=== PATIENT | female | born 1955 | race Caucasian/White ===

== ENCOUNTER 2018-05-23 13:51 | Outpatient (CLI) | payer OTHER ==
--- NOTE | 2018-05-23 15:09 | BD ---
DEXA BONE DENSITOMETRY: (Dual energy X-ray Absorptiometry) DATE: 05/23/18 HISTORY: 62-year-old postmenopausal white female for age-related osteoporosis follow-up screening examination. Height: 66 Weight: 155 lbs Age of menopause: 47 years COMPARISON: 10/29/12. FINDINGS: The bone mineral density (BMD) is given in grams per square centimeter (g/cm2): LUMBAR SPINE: BMD(g/cm2) T-score Z-score L1: 0.824 -1.5 -0.1 L2: 0.879 -1.4 0.2 L3: 1.036 -0.4 1.2 L4: 1.090 0.3 1.9 Total: 0.962 -0.8 0.8 Change in BMD compared to previous DEXA: +9.4% HIP: Femoral neck: 0.663 -1.7 -0.3 Total: 0.894 -0.4 0.6 Change in BMD compared to previous DEXA: -9.5% FRAX WHO Fracture Risk Assessment Tool: 10 Year Fracture Risk * Major osteoporotic fracture: 8.9% Hip fracture: 0.9% Reported Risk Factors: [place](), Neck BMD=0.663, BMI=25.0 * Fracture probability is calculated for an untreated patient. Fracture probability may be lower if the patient has received treatment. IMPRESSION: 1. The mean bone mineral density of the lumbar spine is normal. Fracture risk is not increased. 2. The bone mineral density of the femoral neck is osteopenic. Fracture risk is increased. EDWARDO Galaviz POS: MARY BETH
== END 2018-05-23 13:52 | disposition home or self-care (01) ==
LOC: BICMAMMO 13:51
PROVIDERS: ATTEND Family Medicine
DX: Z12.31 Encounter for screening mammogram for malignant neoplasm of breast (principal); Z13.820 Encounter for screening for osteoporosis; M85.859 Other specified disorders of bone density and structure, unspecified thigh; N64.89 Other specified disorders of breast
CPT/HCPCS: 77063; 77067; 77080

== ENCOUNTER 2018-06-02 13:39 | Outpatient (CLI) | payer OTHER ==
--- NOTE | 2018-06-02 15:39 | ULT ---
LIMITED RIGHT BREAST ULTRASOUND: Date: 06-02-18 Provided Clinical History: Abnormal mammogram. FINDINGS: Limited sonographic interrogation of the right breast was performed in the region of mammographic con cern. A cluster of cysts is seen at the 12 o'clock location, corresponding to the mammogram finding. No suspicious sonographic findings are evident. IMPRESSION: BIRADS category 2 - benign findings. Return to annual screening mammography recommended. POS: MARLIN
== END 2018-06-02 13:40 | disposition home or self-care (01) ==
LOC: BICMAMMO 13:39
PROVIDERS: ATTEND Family Medicine
DX: R92.2 Inconclusive mammogram (principal); N64.89 Other specified disorders of breast
CPT/HCPCS: G0279

== ENCOUNTER 2020-02-18 13:39 | Outpatient (CLI) | payer OTHER ==
--- NOTE | 2020-02-18 14:17 | BD ---
EXAM: DEXA bone density examination HISTORY: 64-year-old postmenopausal female for screening COMPARISON: DEXA scan 2018 FINDINGS: L1--bone mineral density 0.865 g/sq cm; T score -1.1 L2--bone mineral density 0.861 g/sq cm; T score -1.5 L3--bone mineral density 1.120 g/sq cm; T score 0.3 L4--bone mineral density 1.175 g/sq cm; T score 1.0 Total L1-L4--bone mineral density 1.015 g/sq cm; T score -0.3 Left femoral neck--bone mineral density0.650; T score -1.8 Total proximal left femur--bone mineral density 0.849; T score -0.8 WHO classification: Osteopenia 10 year fracture risk Major osteoporotic fracture: 9.5% Hip fracture: 1.1% IMPRESSION: Osteopenia with elevated fracture risk as above.
--- NOTE | 2020-02-18 15:21 | MMO ---
Bilateral MAMMO Bilat Screen [facility]. CLINICAL HISTORY: Patient is 64 years old and is seen for screening. The patient has no family history of breast cancer. The patient has no personal history of cancer. VIEWS: The views performed were: bilateral craniocaudal with tomosynthesis and bilateral mediolateral oblique with tomosynthesis. FILMS COMPARED: The present examination has been compared to prior imaging studies performed at [facility] on 10/29/2012, 10/30/2013, 05/23/2018 and 06/02/2018. This study has been interpreted with the assistance of computer-aided detection. MAMMOGRAM FINDINGS: There are scattered fibroglandular densities. Finding 1: Benign calcifications are noted bilaterally. Finding 2: There is a stable focal asymmetry seen in the right breast. There are no suspicious masses, suspicious calcifications, or new areas of architectural distortion. IMPRESSION: THERE IS NO MAMMOGRAPHIC EVIDENCE OF MALIGNANCY. A ROUTINE FOLLOW-UP MAMMOGRAM IN 1 YEAR IS RECOMMENDED. THE RESULTS OF THIS EXAM WERE SENT TO THE PATIENT. ACR BI-RADS Category 2 - Benign finding MAMMOGRAPHY NOTE: 1. A negative mammogram report should not delay a biopsy if a dominant of clinically suspicious mass is present. 2. Approximately 10% to 15% of breast cancers are not detected by mammography. 3. Adenosis and dense breasts may obscure an underlying neoplasm. Reported by: DAHLIA ESPINOZA MD Electonically Signed: [id number]
== END 2020-02-18 13:40 | disposition home or self-care (01) ==
LOC: BICMAMMO 13:39
DX: Z12.31 Encounter for screening mammogram for malignant neoplasm of breast (principal); Z13.820 Encounter for screening for osteoporosis; M85.89 Other specified disorders of bone density and structure, multiple sites
CPT/HCPCS: 77063; 77067; 77080

== ENCOUNTER 2020-05-03 09:21 | Outpatient (CLI) | payer OTHER ==
[2020-05-03 17:40] LABS: SARS-CoV-2 MS2 Positive; SARS-CoV-2 N Gene Negative; SARS-CoV-2 S Gene Negative; SARS-CoV-2 by NAA Not Detected (NotDetected); SARS-CoV-2 orf1ab Negative
== END 2020-05-03 09:22 | disposition home or self-care (01) ==
LOC: LABBT 09:21
PROVIDERS: ATTEND Ophthalmology Retina Specialist
DX: H33.22 Serous retinal detachment, left eye (principal); Z20.828 Contact with and (suspected) exposure to other viral communicable diseases
CPT/HCPCS: 87635; U0003

== ENCOUNTER 2020-05-05 07:22 | Day surgery (SDC) | payer OTHER ==
[2020-05-03 14:44] VITALS: BMI 25.4
[~2020-05-05 07:22] MED LIST: Fentanyl 100 MCG/2 ML VIAL ONE; Fluorouracil 100 MG, Enoxaparin Sodium 25 MG, EPINEPHrine 0.3 MG in Ophthalmic Irrigati... IRR SCH; Midazolam HCl 2 mg/2 ml Vial ONE
[2020-05-05] MEDS ORDERED: Cyclopentolate 1% Opth Drop 2 ML BOT ONE (08:07)
[2020-05-05] MEDS ORDERED: Phenylephrine 2.5% Ophth Soln 5 ML BOT ONE (08:07)
[2020-05-05] MEDS ORDERED: Midazolam HCl 2 mg/2 ml Vial ONE (08:43)
[2020-05-05] MEDS ORDERED: Triamcinolone 40 MG/ML VIAL ONE (10:51)
[2020-05-05] MEDS ORDERED: Lidocaine 1% PF 5 ML VIAL ONE (10:51)
[2020-05-05] MEDS ORDERED: Bupivacaine PF 0.75% SDV 10 ML ONE (10:51)
[2020-05-05] MEDS ORDERED: Maxitrol 0.1% Opth Oint 3.5 GM TUBE ONE (10:51)
[2020-05-05] MEDS ORDERED: PROPOFOL 200 MG/20 ML VIAL ONE (10:51)
[2020-05-05] MEDS ORDERED: CEFAZOLIN 1 GM VIAL ONE (10:51)
[2020-05-05] MEDS ORDERED: Lidocaine 4% PF 5 ML AMP ONE (10:51)
--- NOTE | 2020-05-06 15:12 | OP ---
DATE OF PROCEDURE: 05/05/2020 PREOPERATIVE DIAGNOSIS: Rhegmatogenous retinal detachment, left eye. POSTOPERATIVE DIAGNOSIS: Rhegmatogenous retinal detachment, left eye. PROCEDURES PERFORMED: Pars plana vitrectomy and retinal detachment repair, left eye. ANESTHESIA: Local with monitored anesthesia care. DESCRIPTION OF PROCEDURE: The patient was identified in the preoperative holding area. Appropriate informed consent for the planned surgical procedure on the left eye had been obtained. The patient was transported to the operative suite. Appropriate cardiopulmonary monitoring was established. Local anesthesia was obtained using retrobulbar modified Van Lint lid block using 50:50 mixture of 4% lidocaine and 0.75% bupivacaine. The patient was prepped and draped in usual sterile manner for ophthalmic surgery. On the left eye, lid speculum was placed in the left eye. A 25-gauge trocar was placed in the conjunctiva and sclera superotemporally, inferotemporally, and superonasally. Infusion line was placed inferotemporally. Light pipe vitreous cutter was inserted into the eye. Core vitrectomy was performed. Vitreous base was trimmed back 360 degrees using wide field viewing system. Posterior draining retinotomy was created. Ten minutes were allowed for fluid to drain posteriorly. 270-degree superior laser was placed using Endolaser delivery device with special attention to superior breaks. 28% sulfur hexafluoride gas was infused into the eye. Superior sclerotomy was suture closed with 6-0 plain gut suture. Retrobulbar Kenalog and subconjunctival Ancef were placed. Antibiotic ointment was placed. Eye was patched and shielded. The patient was taken to postop recovery unit in good condition having suffered no immediate perioperative complications. The patient has been advised to position left side down. Follow up in the morning with Dr. Samayoa. Job ID: [id number]
== END 2020-05-05 11:45 | disposition home or self-care (01) ==
LOC: SDC 07:22
PROVIDERS: ATTEND Ophthalmology Retina Specialist
PROC: 08T53ZZ Resection of Left Vitreous, Percutaneous Approach (ICD-10-PCS; principal; 2020-05-05)
DX: H33.022 Retinal detachment with multiple breaks, left eye (principal); Z79.899 Other long term (current) drug therapy
CPT/HCPCS: 67025; J0171; J0690; J1650; J2001; J2250; J2704; J3010; J3301; J3490; J9190

== ENCOUNTER 2021-04-03 13:14 | Outpatient (CLI) | payer BC | END 2021-04-03 13:15 | disposition home or self-care (01) | LOC: BICMAMMO 13:14 | PROVIDERS: ATTEND Family Medicine | DX: Z12.31 Encounter for screening mammogram for malignant neoplasm of breast (principal) | CPT/HCPCS: 77063; 77067 ==